=== PATIENT | female | born 1970 | race African-American/Black ===

== ENCOUNTER 2017-01-18 08:57 | Emergency (ER) | payer MEDICAID ==
[~2017-01-18] VITALS: Ht 152.4 cm; Wt 93.0 kg
[2017-01-18 08:58] VITALS: BP 116/72; PULSE 88; RESP 14; TEMP 98.4; O2SAT 100
--- NOTE | 2017-01-18 09:18 | PD ---
HPI Chief Complaint: Fall Time Seen by Provider: 09:19 Travel History International Travel<30 days: No Contact w/Intl Traveler<30days: No Traveled to known affect area: No History of Present Illness HPI while at work, patient states that she tripped on a metal strip and landed on left side of body with most of her body weight landing on left knee...was able to walk on it though painful...now this morining is throbbing worse, nonradiating, 08/26. all:nkda pmhx:htn (on hctz) pshx:bariatric surgery, breast and left elbow surgery PFSH Past Medical History Hx Anticoagulant Therapy: No Cardiovascular Problems: No Chemotherapy: No Cerebrovascular Accident: No Diabetes: No Respiratory: No ?: Not Past Surgical History Hysterectomy: Yes Allergies-Medications (Allergen,Severity, Reaction): Coded Allergies: No Known Allergies (Unverified , 01/18/17) Review of Systems Except as stated in HPI: all other systems reviewed are Neg General / Constitutional: No: Fever Eyes: No: Visual changes HENT: No: Headaches Cardiovascular: No: Chest Pain or Discomfort Respiratory: No: Shortness of Breath Gastrointestinal: No: Abdominal Pain Genitourinary: No: Dysuria Musculoskeletal: Positive: Pain (see hpi) Skin: No Rash Neurologic: No: Weakness Psychiatric: No: Depression Endocrine: No: Polydipsia Hematologic/Lymphatic: No: Easy Bruising Physical Exam Narrative GENERAL: SKIN: Warm and dry. HEAD: Atraumatic. Normocephalic. EYES: Pupils equal and round. No scleral icterus. No injection or drainage. ENT: No nasal bleeding or discharge. Mucous membranes pink and moist. NECK: Trachea midline. No JVD. CARDIOVASCULAR: Regular rate and rhythm. RESPIRATORY: No accessory muscle use. Clear to auscultation. Breath sounds equal bilaterally. GASTROINTESTINAL: Abdomen soft, non-tender, nondistended. Hepatic and splenic margins not palpable. MUSCULOSKELETAL: Extremities without clubbing, cyanosis, or edema. No obvious deformities. however left knee edema infrapatellar and lateral to patella, no laceration, no abrasion. NEUROLOGICAL: Awake and alert. No obvious cranial nerve deficits. Motor grossly within normal limits. Five out of 5 muscle strength in the arms and legs. Normal speech. PSYCHIATRIC: Appropriate mood and affect; insight and judgment normal. Data Data Last Documented VS Vital Signs Date Time Temp Pulse Resp B/P (MAP) Pulse Ox O2 Delivery O2 Flow Rate FiO2 01/18/17 09:15 16 99 Room Air 01/18/17 08:58 98.4 88 116/72 (87) Orders Orders Knee, Complete (4vws) (01/18/17 ) Tramadol (Ultram) (01/18/17 09:30) Ondansetron Odt (Zofran Odt) (01/18/17 09:30) Ct Knee W/O Contrast (01/18/17 ) MDM Medical Decision Making Medical Screen Exam Complete: Yes Emergency Medical Condition: Yes Medical Record Reviewed: Yes Differential Diagnosis knee fx v patellar fx v dislocation v contusion v ligamentous knee injury Narrative Course xray neg for dislocation including patella...however xray had questionable depression of tibial plateau, will get ct to r/o fracture.... will order outpatient mri left knee to r/o ligamentous injury and have results sent to [facility] Diagnosis Primary Impression: left knee pain s/p fall Referrals: [facility] please follow at clinic for your mri results and further referral if needed. Patient Instructions: General Instructions, Swollen Knee Joint (ED) Scripts Tramadol (Ultram) 50 Mg Tab 50 MG PO Q4H Y for PAIN, #14 TAB 0 Refills Prov: Flaquito Meredith MD 01/18/17 Disposition: 01 DISCHARGE HOME Condition: Stable Flaquito Meredith MD Jan 18, 2017 09:18
[2017-01-18] MEDS ORDERED: ONDANSETRON ODT 4 MG TAB PO ONE (09:30)
[2017-01-18] MEDS ORDERED: traMADol HCL 50 MG TAB PO ONE (09:30)
--- NOTE | 2017-01-18 10:40 | RADRPT ---
EXAM DATE/TIME: 01/18/2017 09:59 [facility] COMPARISON: No previous studies available for comparison. INDICATIONS : Left knee pain post fall MEDICAL HISTORY : None. SURGICAL HISTORY : None. ENCOUNTER: Initial ACUITY: 2 days PAIN SCORE: 6/10 LOCATION: Left knee FINDINGS: Four view examination of the left knee demonstrates depression lateral tibial plateau. Cannot exclude fracture. Joint effusion. Severe osteoarthritis. CONCLUSION: Severe osteoarthritis. Slight depression lateral tibial plateau, cannot exclude fracture. Joint effus ion. Rohith Yusuf MD on January 18, 2017 at 10:37 Board Certified Radiologist. This report was verified electronically.
--- NOTE | 2017-01-18 11:18 | RADRPT ---
EXAM DATE/TIME: 01/18/2017 10:58 [facility] COMPARISON: KNEE LEFT COMPLETE (4VWS), January 18, 2017, 9:59. INDICATIONS : Fall today, left knee pain. RADIATION DOSE: 7.45 CTDIvol (mGy) MEDICAL HISTORY : None SURGICAL HISTORY : Hysterectomy. ENCOUNTER: Initial ACUITY: 1 day PAIN SCALE: 7/10 LOCATION: Left knee TECHNIQUE: Volumetric scanning of the knee was performed. Using automated exposure control and adjustment of th e mA and/or kV according to patient size, radiation dose was kept as low as reasonably achievable to obtain optimal diagnostic quality images. DICOM format image data is available electronically for re view and comparison. FINDINGS: BONES: No evidence of fracture. Alignment is within normal limits. Severe tricompartmental osteoarthritis. No fracture. JOINTS: Small joint effusion. SOFT TISSUES: Muscles, tendons and neurovascular structures are grossly unremarkable. No evidence of mass, organize d fluid collection, or foreign body. CONCLUSION: 1. Osteoarthritis without fracture. 2. Small joint effusion. Rohith Yusuf MD on January 18, 2017 at 11:15 Board Certified Radiologist. This report was verified electronically.
[2017-01-18] MEDS ORDERED: TRAM50 PO (11:27)
== END 2017-01-18 11:56 | disposition home or self-care (01) ==
LOC: NEPD 08:57
DX: M25.562 Pain in left knee (principal); M25.462 Effusion, left knee; I10 Essential (primary) hypertension; W01.0XXA Fall on same level from slipping, tripping and stumbling without subsequent striking against object, initial encounter; Y99.0 Civilian activity done for income or pay
CPT/HCPCS: 73564; 73700; 99285; E0113; L1830

== ENCOUNTER → 2017-06-27 | Day surgery (SDC) | payer MEDICAID ==
[~2017-06-27] VITALS: Ht 152.4 cm; Wt 98.0 kg
[~2017-06-27] MED LIST: ACET-822 PO; BUPIVACAINE/EPINEPHRINE 0.5% PF 30 ML VIAL ONE; CHLORHEXIDINE GLUCONATE 2 % 1 PACK (2 CLOTHS) TOPICAL PRN; CHLORHEXIDINE GLUCONATE 4% SOLN 120 ML BTL TOPICAL SCH; COLA100C5 PO; HYDR12.57 PO; HYDROmorphone HCL PF 0.5 MG/0.5 ML SYRINGE ONE; INSULIN HUMAN REGULAR 1,000 UNITS/10 ML VIAL SQ PRN; KETOROLAC TROMETHAMINE 30 MG/ML (IVP) VIAL ONE; LACTATED RINGER'S 1000 ML IV PRN; METOPROLOL TARTRATE 25 MG TAB PO PRN; MIDAZOLAM HCL 2 MG/2 ML VIAL ONE; MORPHINE SULFATE 8 MG/ML INJ ONE; OMEP40CA2 PO; POVIDONE IODINE 5% (ANTISEPSIS KIT) 4 APPLICATIONS EACH NARE PRN; SODIUM CHLORID 0.9% 500 ML IV PRN; TRAM50 PO; TRIAMCINOLONE ACETONIDE 40 MG/ML VIAL ONE; VITA100018 PO
--- NOTE | 2017-06-27 12:29 | MP ---
cc: Shahriar Kaur MD DATE OF OPERATION: 06/27/2017 SURGEON: Shahriar Kaur MD. PREOPERATIVE DIAGNOSIS: Tear of medial meniscus, left knee joint. POSTOPERATIVE DIAGNOSES: 1. Tear of medial meniscus, left knee joint. 2. 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 PROCEDURE: 1. Arthroscopic chondroplasty medial compartment. 2. Subtotal medial meniscectomy. DETAILS OF PROCEDURE: The patient was placed on the operating room table in the supine position. Adequate general anesthesia was administered by Dr. Reyes, the anesthesiologist. The left knee was prepped and draped in the usual sterile fashion. A time-out was called and the patient's name, procedure, location, etc. were fully confirmed. An anterolateral stab wound was made and the inflow cannula system was inserted and the joint was distended with lactated Ringer's solution. A systematic examination of the knee joint revealed some chondromalacia of the patellofemoral joint of a mild degree. The intercondylar fossa was unremarkable. The medial compartment showed an obvious tear through the middle 1/3 to posterior third of the meniscus with an undersurface extension of the tear making it complex. The adjacent articular surfaces of the distal femur and proximal tibia also were eroded down to subchondral bone and the lesion identified and then smoothed off with a chondroplasty being performed of the entire medial compartment with a meniscal resector. The same motorized instrument was used to resect the medial meniscal tear, which was supplemented by hand instruments. The joint was thoroughly irrigated and aspirated. The lateral compartment did appear to be intact. There was no evidence of loose bodies. The instruments were then removed and the 2 stab wounds closed with simple 3-0 nylon. The sponge count, needle counts and instrument counts were reported to be correct x 2. An intraarticular injection of 10 mL of 0.75 mg of Marcaine was inserted and a sterile bulky dressing was applied. The tourniquet was deflated after 18 minutes. ESTIMATED BLOOD LOSS: Nil. The patient tolerated the procedure well, went to the recovery room in satisfactory condition. Shahriar Kaur MD WILLIAM/DL , 12:03 PM , 12:28 PM
[2017-06-27 14:50] VITALS: BP 108/69; PULSE 68; RESP 16; TEMP 98.1; O2SAT 99
== END | disposition home or self-care (01) ==
LOC: PHSDC 07:57
PROVIDERS: ATTEND Orthopaedic Surgery
DX: S83.242A Other tear of medial meniscus, current injury, left knee, initial encounter (principal); M22.42 Chondromalacia patellae, left knee
CPT/HCPCS: 01400; 29881; J1170; J1885; J2250; J2270; J3301; J7120